=== PATIENT | female | born 1995 | race Caucasian/White ===

== ENCOUNTER 2017-11-02 07:32 | Inpatient (IN) | payer BC ==
[2017-11-02] MEDS ORDERED: Lidocaine 1% 50 ML MDV INJECT PRN (07:59)
[2017-11-02] MEDS ORDERED: Sodium Chloride 0.9% 2.5 ML Syringe FLUSH PRN (07:59)
[2017-11-02] MEDS ORDERED: Nalbuphine 10 MG/1 ML Vial IVPUSH PRN (07:59)
[2017-11-02] MEDS ORDERED: Sodium Chloride 0.9% 10 ML Syringe FLUSH PRN (07:59)
[2017-11-02] MEDS ORDERED: Water For Irrigation,Sterile 1,000 ML Container IRR PRN (07:59)
[2017-11-02] MEDS ORDERED: Carboprost Tromethamine 250 MCG/1 ML Amp IM PRN (07:59)
[2017-11-02] MEDS ORDERED: Misoprostol 200 MCG Tab PO PRN (07:59)
[2017-11-02] MEDS ORDERED: Methylergonovine 0.2 MG/1 ML Amp IM PRN (07:59)
[2017-11-02] MEDS ORDERED: Oxytocin/0.9 % Sodium Chloride 30 UNIT/500 ML BAG IV SCH ×2 (08:00→14:30)
[2017-11-02] MEDS: Butorphanol 1 MG/ML SDV IVPUSH PRN ×2 (08:35→10:39)
[2017-11-02] MEDS: Lactated Ringers 1,000 ML IV SCH ×3 (08:36→12:06)
[2017-11-02] MEDS ORDERED: Ropivacaine 100 ML ONE ×2 (11:09→21:26)
[2017-11-02] MEDS ORDERED: fentaNYL 100 MCG/2 ML SDV ONE ×2 (11:09→21:26)
[2017-11-02] MEDS ORDERED: Ropivacaine 0.2% 2 MG/ML 20 ML SDV ONE (11:10)
--- NOTE | 2017-11-02 11:59 | PCM.PRNOTE ---
- Free Text/Narrative Note: called to place epidural for increasing labor pain. Pt identified and procedure explained. risks reviewed including bleeding, infection, nerve pain, nerve damage, and unsuccessful epidural. pt agrees both verbally and written consent. sitting up, sterile betadine prep times three with sterile drape. 1% lidocaine given SQ at L3. #17 touhy, SAGE saline, SAGE easily found at 5 cm. Dilute heme tinged aspirate with needle placement, no paresthesia. catheter placed easily, taped at 10 cm at skin. flushed with 5 ml normal saline, aspirate clear. test dose 1.5% lidocaine with epinephrine 1:200,000. negative reaction. epidural bolus with Patient HOB at 30 degrees, LIZETTE. bolus of 6 ml 0.2% ropivicaine and 100 mcg fentanyl given in divided doses over 20 minutes. Pt feeling relief with contractions, pain now 0/10. epidural infusion running at 8ml/hr with fentanyl 2 mcg/ml. PCEA bolus available 8 ml/10 min with hourly limit of 30 ml's. Educated on use of PCEA. vital signs remain stable, FHR stable
--- NOTE | 2017-11-02 12:01 | PCM.PREANE ---
Preanesthetic Assessment - Procedure Proposed Procedure: labor epidural - Anesthesia/Transfusion/Family Hx Anesthesia History: No Prior Anesthesia Family History of Anesthesia Reaction: No Transfusion History: No Prior Transfusion(s) - Review of Systems General: No Symptoms Pulmonary: No Symptoms Cardiovascular: No Symptoms Gastrointestinal: No Symptoms, Nausea Neurological: No Symptoms Other: Reports: None - Physical Assessment NPO Status Date: 11/02/17 NPO Status Time: 12:00 (clear liquids) Height: 1.57 m Weight: 71.668 kg ASA Class: 2 Mental Status: Alert & Oriented x3 Dentition: Reports: Normal Dentition Thyro-Mental Finger Breadths: 3 Mouth Opening Finger Breadths: 3 ROM/Head Extension: Other (nose piercing) Lungs: Clear to Auscultation, Normal Respiratory Effort Cardiovascular: Regular Rate, Regular Rhythm - Lab Values: Laboratory Last Values WBC 13.39 K/uL (4.0-11.0) H 11/02/17 08:22 RBC 4.20 M/uL (4.30-5.90) L 11/02/17 08:22 Hgb 11.3 g/dL (12.0-16.0) L 11/02/17 08:22 Hct 34.2 % (36.0-46.0) L 11/02/17 08:22 MCV 81.4 fL (80.0-98.0) 11/02/17 08:22 MCH 26.9 pg (27.0-32.0) L 11/02/17 08:22 MCHC 33.0 g/dL (31.0-37.0) 11/02/17 08:22 RDW Std Deviation 44.7 fl (28.0-62.0) 11/02/17 08:22 RDW Coeff of Jodie 15 % (11.0-15.0) 11/02/17 08:22 Plt Count 196 K/uL (150-400) 11/02/17 08:22 MPV 10.80 fL (7.40-12.00) 11/02/17 08:22 Nucleated RBC % 0.0 /100WBC 11/02/17 08:22 Nucleated RBCs # 0 K/uL 11/02/17 08:22 Blood Type A NEGATIVE 11/02/17 08:22 Antibody Screen NEGATIVE 11/02/17 08:22 - Allergies Allergies/Adverse Reactions: Allergies Allergy/AdvReac Type Severity Reaction Status Date / Time No Known Allergies Allergy Verified 11/02/17 07:58 - Blood Blood Available: Yes Product(s) Available: PRBC - Acknowledgements Anesthesia Type Planned: Epidural Pt an Appropriate Candidate for the Planned Anesthesia: Yes Alternatives and Risks of Anesthesia Discussed w Pt/Guardian: Yes Pt/Guardian Understands and Agrees with Anesthesia Plan: Yes PreAnesthesia Questionnaire - Past Health History Medical/Surgical History: Denies Medical/Surgical History - CURRENT (IN HOUSE) MEDS Current Meds: Current Medications Butorphanol Tartrate (Stadol) 1 mg IVPUSH Q1H PRN PRN Reason: Pain Last Admin: 11/02/17 10:39 Dose: 1 mg Carboprost Tromethamine (Hemabate Ds) 250 mcg IM ASDIRECTED PRN PRN Reason: Post Hemorrhage Lactated Ringer's (Ringers, Lactated) 1,000 mls @ 150 mls/hr IV ASDIRECTED JORGE Last Admin: 11/02/17 11:15 Dose: 150 mls/hr Oxytocin/Sodium Chloride (Oxytocin 30 Unit/500 Ml-Ns) 30 unit in 500 mls @ 999 mls/hr IV TITRATE JORGE Lidocaine HCl (Xylocaine 1%) 50 ml INJECT .ONCE PRN PRN Reason: Laceration repair Methylergonovine Maleate (Methergine) 0.2 mg IM ASDIRECTED PRN PRN Reason: Post Hemorrhage Misoprostol (Cytotec) 200 mcg PO .ONCE PRN PRN Reason: Post Hemorrhage Nalbuphine HCl (Nubain) 10 mg IVPUSH Q1H PRN PRN Reason: Pain (severe 7-10) Sodium Chloride (Saline Flush) 10 ml FLUSH ASDIRECTED PRN PRN Reason: Keep Vein Open Sodium Chloride (Saline Flush) 2.5 ml FLUSH ASDIRECTED PRN PRN Reason: Keep Vein Open Sterile Water (Sterile Water For Irrigation) 1,000 ml IRR ASDIRECTED PRN PRN Reason: delivery Discontinued Medications Fentanyl (Sublimaze) Confirm Administered Dose 300 mcg .ROUTE .STK-MED ONE Stop: 11/02/17 11:10 Ropivacaine (Naropin 0.2%) Confirm Administered Dose 100 mls @ as directed .ROUTE .STK-MED ONE Stop: 11/02/17 11:10 Ropivacaine (Naropin 0.2%) Confirm Administered Dose 20 ml .ROUTE .[facility] ONE Stop: 11/02/17 11:11
[2017-11-02] MEDS ORDERED: Terbutaline 1 MG/ML SDV SUBCUT PRN (14:20)
[2017-11-02] MEDS ORDERED: Misoprostol 25 MCG (1/4 of 100 MCG) Tab VAG PRN (14:20)
[2017-11-02] MEDS ORDERED: Misoprostol 25 MCG (1/4 of 100 MCG) Tab VAG SCH (14:30)
[2017-11-02] MEDS ORDERED: Acetaminophen 500 MG Tab PO ONE (21:04)
[2017-11-02] MEDS: Ampicillin 2 GM in Sodium Chloride 0.9% 100 ML IV SCH (21:40)
[2017-11-02] MEDS ORDERED: Ampicillin 2 GM in Sodium Chloride 0.9% 50 ML IV SCH (21:45)
[2017-11-03] MEDS ORDERED: Acetaminophen 500 MG Tab PO PRN ×2 (00:52)
[2017-11-03] MEDS ORDERED: Benzocaine/Menthol 20%-0.5% Spray 78 GM Cannister TOP PRN (00:52)
[2017-11-03] MEDS ORDERED: Lanolin 100% Cream 7 GM Tube TOP PRN (00:52)
[2017-11-03] MEDS ORDERED: Ibuprofen 400 MG Tab PO PRN (00:52)
[2017-11-03] MEDS ORDERED: oxyCODONE 5 MG Tab PO PRN (00:52)
[2017-11-03] MEDS ORDERED: Bisacodyl 10 MG Supp RECTAL PRN (00:52)
[2017-11-03] MEDS ORDERED: Docusate Sodium 100 MG Cap PO PRN (00:52)
[2017-11-03] MEDS: Ampicillin 2 GM in Sodium Chloride 0.9% 100 ML IV SCH ×4 (03:40→21:27)
[2017-11-03] MEDS: Witch Hazel Medicated Pads 40/Jar TOP PRN (04:25)
[2017-11-03] MEDS: Ibuprofen 800 MG Tab PO PRN ×2 (04:53→15:46)
--- NOTE | 2017-11-03 10:33 | OR ---
SURGEON: Catherine Haney MD DATE OF PROCEDURE: 11/03/2017 PREOPERATIVE DIAGNOSES: 1. Intrauterine at 40 weeks and 3 days gestation. 2. Spontaneous labor. 3. Chorioamnionitis. POSTOPERATIVE DIAGNOSES: 1. Intrauterine at 40 weeks and 3 days gestation. 2. Spontaneous labor. 3. Chorioamnionitis. 4. Delivered. PROCEDURE: 1. Spontaneous vaginal delivery. 2. Repair of perineal laceration. ANESTHESIA: Epidural. ESTIMATED BLOOD LOSS: 200 mL. COMPLICATIONS: None. DISPOSITION: Mother and baby stable in Labor and Delivery room, [facility]. FINDINGS: Male ,3610 grams, score 4 and 9 at 1 and 5 minutes respectively. Nuchal cord twice. Grossly normal placenta with 3-vessel cord. Second-degree laceration and the right labial laceration. BRIEF HISTORY: Patito is a 22-year-old, primigravida, who presented at 40 weeks and 2 days gestation at about 8:00 a.m. to Labor and Delivery on the November 02, 2017, with a history of regular contractions since 5:00 a.m. and then leakage of clear fluid from around 7:00 a.m. She denied vaginal bleeding and reported active fetus. Her care was uncomplicated. She is GBS negative. On admission , she was confirmed to be grossly ruptured and was about 2 cm dilated, 80% effaced , station -2. She was raj every 2 to 3 minutes. The patient received IV medication Stadol for pain management and subsequently received an epidural. Over the next 6 hours, she made minimal cervical change and Pitocin augmentation was commenced. With Pitocin, she was noted to have a category 2 strip alternating with category 1. She had variable decelerations with coupling of contractions and also early decelerations. She slowly made cervical changes and eventually became fully dilated shortly before 9:00 p.m. Prior to just before she was confirmed to be fully dilated, the fetus was noted to have tachycardia in the 160s to 170s. Her temperature was taken and she was found to have a temperature of a 100.5. She received a gram of Tylenol p.o. and also ampicillin with gentamicin was started for suspected chorioamnionitis. The baby's heart rate did come down, but subsequently became tachycardiac between 160 to 170s for about 30 minutes to 45 minutes after she received antibiotics and then it returned back to a baseline of 150s. There were intermittent variable decelerations with pushing and she pushed a little over 2 hours and 20 minutes, brought the baby's head down to a +4 station and was set up for delivery in a modified dorsal lithotomy position. DESCRIPTION OF PROCEDURE: She had a spontaneous vaginal delivery of a live male infant, in TONEY position, nuchal cord x 2 loose was noted. These were easily reduced. Anterior and the posterior shoulders and the rest of the baby were delivered without difficulty. The baby was floppy at delivery with good tone. The cord was quickly double clamped and cut. The baby was transferred over to the resuscitator where stimulation and evaluation of the baby was commenced by the nursery staff. With delivery of the , oxytocin which had been stopped earlier due to the variable decelerations was restarted, titration for active management of third stage of labor. Cord blood and gas samples were obtained. Placenta was delivered by controlled cord traction, appeared to be complete and intact. Examination of a rather swollen perineum revealed a left- sided second-degree laceration and a right labial laceration. These lacerations were repaired using 2-0 Vicryl in layers and were hemostatic post repair. The patient tolerated the procedure well. Uterine massage was performed. The uterus was found to be well contracted below the umbilicus. Sponge, instrument, and needle counts were correct at the end of the delivery. The baby transitioned well and remained in the Labor And Delivery room with the mother. Dr. Lawson, the surveillance manager on-call, presented shortly after delivery and evaluated the baby. JEMV / QUYNH /[id number] ISAEL
--- NOTE | 2017-11-03 10:42 | PCM48HPAN ---
Post Anesthesia Note - EVALUATION WITHIN 48HRS OF ANESTHETIC Vital Signs in Normal Range: Yes Patient Participated in Evaluation: Yes Respiratory Function Stable: Yes Airway Patent: Yes Cardiovascular Function Stable: Yes Hydration Status Stable: Yes Pain Control Satisfactory: Yes Nausea and Vomiting Control Satisfactory: Yes Mental Status Recovered: Yes
[2017-11-03] MEDS: Clindamycin Phosphate in D5W 600 MG in Premix Bag 1 BAG IV SCH ×2 (18:04)
[2017-11-03] MEDS: Lactated Ringers 1,000 ML IV SCH (21:27)
[2017-11-03] MEDS ORDERED: Clindamycin Phosphate in D5W 50 ML ONE (23:58)
[2017-11-04] MEDS: Clindamycin Phosphate in D5W 600 MG in Premix Bag 1 BAG IV SCH ×8 (00:09→17:43)
[2017-11-04] MEDS: Witch Hazel Medicated Pads 40/Jar TOP PRN (00:18)
[2017-11-04] MEDS: Ampicillin 2 GM in Sodium Chloride 0.9% 100 ML IV SCH ×3 (03:08→15:08)
[2017-11-04] MEDS: Lactated Ringers 1,000 ML IV SCH (03:09)
[2017-11-04] MEDS ORDERED: Clindamycin Phosphate in D5W 50 ML ONE (05:55)
[2017-11-04] MEDS: Ibuprofen 800 MG Tab PO PRN ×2 (07:14→19:04)
--- NOTE | 2017-11-04 12:51 | PCM.PNPP ---
- General Info Date of Service: 11/04/17 Functional Status: Reports: Pain Controlled, Tolerating Diet, Ambulating, Urinating - Review of Systems General: Denies: Fever, Weakness, Malaise, Chills HEENT: Denies: Headaches Pulmonary: Denies: Shortness of Breath, Pleuritic Chest Pain Cardiovascular: Denies: Chest Pain, Palpitations, Dyspnea on Exertion Gastrointestinal: Denies: Abdominal Pain Genitourinary: Denies: Dysuria, Incontinence, Retention Musculoskeletal: Reports: No Symptoms Skin: Reports: No Symptoms Neurological: Reports: No Symptoms Psychiatric: Reports: No Symptoms - General Info Date of Service: 11/04/17 - Patient Data Vital Signs - Most Recent: Last Vital Signs Temp 37.8 C 11/04/17 08:04 Pulse 70 11/04/17 05:10 Resp 16 11/04/17 08:04 BP 111/79 11/04/17 08:04 Pulse Ox 97 11/04/17 08:04 Weight - Most Recent: 158 lb I&O - Last 24 Hours: Intake & Output 11/03/17 11/04/17 11/04/17 22:59 06:59 14:59 Intake Total 2 Balance 2 Lab Results - Last 24 Hours: Laboratory Results - last 24 hr 11/03/17 11/03/17 11/04/17 Range/Units 01:25 17:45 07:07 WBC 14.93 H 10.30 (4.0-11.0) K/uL RBC 3.38 L 3.44 L (4.30-5.90) M/uL Hgb 9.2 L 9.2 L (12.0-16.0) g/dL Hct 27.7 L 28.6 L (36.0-46.0) % MCV 82.0 83.1 (80.0-98.0) fL MCH 27.2 26.7 L (27.0-32.0) pg MCHC 33.2 32.2 (31.0-37.0) g/dL RDW Std Deviation 45.8 47.5 (28.0-62.0) fl RDW Coeff of Jodie 16 H 16 H (11.0-15.0) % Plt Count 164 154 (150-400) K/uL MPV 10.70 10.70 (7.40-12.00) fL Neut % (Auto) 87.3 H 84.9 H (48.0-80.0) % Lymph % (Auto) 5.9 L 9.0 L (16.0-40.0) % Story % (Auto) 6.6 5.3 (0.0-15.0) % Eos % (Auto) 0.1 0.7 (0.0-7.0) % Baso % (Auto) 0.1 0.1 (0.0-1.5) % Neut # (Auto) 13.0 H 8.7 H (1.4-5.7) K/uL Lymph # (Auto) 0.9 0.9 (0.6-2.4) K/uL Story # (Auto) 1.0 H 0.6 (0.0-0.8) K/uL Eos # (Auto) 0.0 0.1 (0.0-0.7) K/uL Baso # (Auto) 0.0 0.0 (0.0-0.1) K/uL Nucleated RBC % 0.0 0.0 /100WBC Nucleated RBCs # 0 0 K/uL Screen NEGATIVE (NEGATIVE) RhIG Candidate? YES Rhogam Indicated YES, BABY RH POS H Med Orders - Current: Current Medications Acetaminophen (Tylenol Extra Strength) 500 mg PO Q4H PRN PRN Reason: Pain Acetaminophen (Tylenol Extra Strength) 1,000 mg PO Q4H PRN PRN Reason: Pain Benzocaine/Menthol (Dermoplast Pain Relief 20%-0.5% [place]) 78 gm TOP ASDIRECTED PRN PRN Reason: Perineal Comfort Measure Last Admin: 11/03/17 04:25 Dose: 1 spray Bisacodyl (Dulcolax) 10 mg RECTAL .ONCE PRN PRN Reason: Constipation Docusate Sodium (Colace) 100 mg PO BID PRN PRN Reason: Constipation Last Admin: 11/03/17 15:41 Dose: 100 mg Emollient Ointment (Lansinoh Hpa) 0 gm TOP ASDIRECTED PRN PRN Reason: Sore Nipples Last Admin: 11/03/17 04:25 Dose: 1 applic Gentamicin Sulfate 120 mg/ (Sodium Chloride) 53 mls @ 100 mls/hr IV Q8H [facility] Last Admin: 11/04/17 05:23 Dose: 100 mls/hr Ampicillin Sodium 2 gm/ Sodium (Chloride) 100 mls @ 200 mls/hr IV Q6H [facility] Last Admin: 11/04/17 09:10 Dose: 200 mls/hr Clindamycin Phosphate 600 mg/ (Premix) 50 mls @ 100 mls/hr IV Q6H [facility] Last Admin: 11/04/17 12:07 Dose: 100 mls/hr Ibuprofen (Motrin) 400 mg PO Q4H PRN PRN Reason: Pain Ibuprofen (Motrin) 800 mg PO Q6H PRN PRN Reason: Pain Last Admin: 11/04/17 07:14 Dose: 800 mg Oxycodone HCl (Oxycodone) 5 mg PO Q2H PRN PRN Reason: Pain Last Admin: 11/03/17 04:52 Dose: 5 mg Witch Kala (Tucks) 1 pad TOP ASDIRECTED PRN PRN Reason: comfort care Last Admin: 11/04/17 00:18 Dose: 1 pad Discontinued Medications Acetaminophen (Tylenol Extra Strength) 1,000 mg PO ONETIME ONE Stop: 11/02/17 21:05 Last Admin: 11/02/17 21:16 Dose: 1,000 mg Butorphanol Tartrate (Stadol) 1 mg IVPUSH Q1H PRN PRN Reason: Pain Stop: 11/03/17 00:50 Last Admin: 11/02/17 10:39 Dose: 1 mg Carboprost Tromethamine (Hemabate Ds) 250 mcg IM ASDIRECTED PRN PRN Reason: Post Hemorrhage Fentanyl (Sublimaze) Confirm Administered Dose 300 mcg .ROUTE .STK-MED ONE Stop: 11/02/17 11:10 Fentanyl (Sublimaze) Confirm Administered Dose 200 mcg .ROUTE .STK-MED ONE Stop: 11/02/17 21:27 Lactated Ringer's (Ringers, Lactated) 1,000 mls @ 150 mls/hr IV ASDIRECTED [facility] Last Admin: 11/04/17 03:09 Dose: 150 mls/hr Oxytocin/Sodium Chloride (Oxytocin 30 Unit/500 Ml-Ns) 30 unit in 500 mls @ 999 mls/hr IV TITRATE [facility] Ropivacaine (Naropin 0.2%) Confirm Administered Dose 100 mls @ as directed .ROUTE .STK-MED ONE Stop: 11/02/17 11:10 Oxytocin/Sodium Chloride (Oxytocin 30 Unit/500 Ml-Ns) 30 unit in 500 mls @ 2 mls/hr IV TITRATE JORGE; 2 MUNITS/MIN PRN Reason: Protocol Last Titration: 11/03/17 00:10 Dose: 999 munits/min, 999 mls/hr Ropivacaine (Naropin 0.2%) Confirm Administered Dose 100 mls @ as directed .ROUTE .ST-MED ONE Stop: 11/02/17 21:27 Clindamycin Phosphate (Cleocin In D5w) Confirm Administered Dose 50 mls @ as directed .ROUTE .STK-MED ONE Stop: 11/03/17 23:59 Clindamycin Phosphate (Cleocin In D5w) Confirm Administered Dose 50 mls @ as directed .ROUTE .[facility] ONE Stop: 11/04/17 05:56 Lidocaine HCl (Xylocaine 1%) 50 ml INJECT .ONCE PRN PRN Reason: Laceration repair Methylergonovine Maleate (Methergine) 0.2 mg IM ASDIRECTED PRN PRN Reason: Post Hemorrhage Misoprostol (Cytotec) 200 mcg PO .ONCE PRN PRN Reason: Post Hemorrhage Misoprostol (Cytotec) 25 mcg VAG .ONCE JORGE Misoprostol (Cytotec) 25 mcg VAG Q4H PRN PRN Reason: Cervical Ripening Nalbuphine HCl (Nubain) 10 mg IVPUSH Q1H PRN PRN Reason: Pain (severe 7-10) Ropivacaine (Naropin 0.2%) Confirm Administered Dose 20 ml .ROUTE .ST-MED ONE Stop: 11/02/17 11:11 Sodium Chloride (Saline Flush) 10 ml FLUSH ASDIRECTED PRN PRN Reason: Keep Vein Open Sodium Chloride (Saline Flush) 2.5 ml FLUSH ASDIRECTED PRN PRN Reason: Keep Vein Open Sterile Water (Sterile Water For Irrigation) 1,000 ml IRR ASDIRECTED PRN PRN Reason: delivery Last Admin: 11/03/17 00:22 Dose: 1,000 ml Terbutaline Sulfate (Brethine) 0.25 mg SUBCUT ASDIRECTED PRN PRN Reason: Tacysystole - Infant Interaction Infant Disposition, : to Nursery Infant Feeding: Continues to Breastfeed Support Person: - Recovery Exam Fundal Tone: Firm Fundal Level: At Umbilicus Fundal Placement: Right Lochia Amount: Small Lochia Color: Rubra/Red Perineum Description: Edematous Episiotomy/Laceration: Approximated Bladder Status: Voiding Urinary Elimination: Voided - Exam General: Alert, Oriented Lungs: Clear to Auscultation, Normal Respiratory Effort Cardiovascular: Regular Rate, Regular Rhythm GI/Abdominal Exam: Normal Bowel Sounds Extremities: Non-Tender, Pedal Edema Skin: Warm Psy/Mental Status: Alert, Normal Affect, Normal Mood - Problem List & Annotations (1) Vaginal delivery SNOMED Code(s): 518593744 Code(s): O80 - ENCOUNTER FOR FULL-TERM UNCOMPLICATED DELIVERY Status: Acute Current Visit: Yes - Problem List Review Problem List Initiated/Reviewed/Updated: Yes - My Orders Last 24 Hours: My Active Orders 11/03/17 17:49 Notify Provider Vital Signs [RC] ASDIRECTED 11/03/17 18:00 Clindamycin Phosphate in D5W [Cleocin in D5W] 600 mg Premix Bag 1 bag IV Q6H - Assessment Assessment:: PPD#1 s/p , stable and afebrile Patient has been IV abx for prophylaxis of endometritis over the last 24 hours buit she spike a temp of 110.5 last evening, clindamycin was added to the regimen at the time. She has since remained afebrile. - Plan Plan:: Will discharge home this evening as long as she remains afebrile 24 hours after her last fever Bleeding and infection precautions reviewed Nothing in the vagina for 6 weeks Continue PNV May use OTC pain meds PRN blues and depression S/S were reviewed Follow up in the clinic in 6 weeks
== END 2017-11-04 19:25 | disposition home or self-care (01) | DRG 560 ==
LOC: MW.OBCHECK 07:32 → MW.OB 07:33 → MW.OBCHECK 08:06 → MW.OB 08:06 → OBSVTOIN 11-03 00:10 → MW.OB 11-03 14:23
PROVIDERS: ADMIT Obstetrics & Gynecology; ATTEND Obstetrics & Gynecology
PROC: 10E0XZZ Delivery of Products of Conception, External Approach (ICD-10-PCS; principal; 2017-11-03)
PROC: 0KQM0ZZ Repair Perineum Muscle, Open Approach (ICD-10-PCS; 2017-11-03)
DX: O42.02 Full-term premature rupture of membranes, onset of labor within 24 hours of rupture (principal); O70.1 Second degree perineal laceration during delivery; O41.1230 Chorioamnionitis, third trimester, not applicable or unspecified; Z3A.40 40 weeks gestation of pregnancy; Z37.0 Single live birth
CPT/HCPCS: 01967; 36415; 59025; 59409; 85025; 85027; 85460; 86850; 86900; 86901; 88307; A9270-GY; J0290; J0595; J1580; J2590; J2790; J2795; J3010; J7030; J7050; J7120

== ENCOUNTER 2019-04-17 07:12 | Emergency (ER) | payer BC, OTHER ==
[2019-04-17] MEDS ORDERED: Ondansetron 4 MG Tab.DIS PO ONE (07:58)
--- NOTE | 2019-04-17 08:13 | EDM.PDOC ---
ED HPI GENERAL MEDICAL PROBLEM - General Chief Complaint: Drug or Alcohol Abuse Stated Complaint: POSSIBLE OVERDOSE Time Seen by Provider: 04/17/19 07:28 Source of Information: Reports: Patient History Limitations: Reports: No Limitations - History of Present Illness INITIAL COMMENTS - FREE TEXT/NARRATIVE: History of present illness: []Patient states she was having a hard week and a friend offered her some CBD oils which she took last night and woke up dizzy, with a headache and nauseous. She's not had any vomiting denies any pain. Patient denies being state she has the Mirena IUD. Review of systems: As per history of present illness and below otherwise all systems reviewed and negative. Past medical history: As per history of present illness and as reviewed below otherwise noncontributory. Surgical history: As per history of present illness and as reviewed below otherwise noncontributory. Social history: No reported history of drug or alcohol abuse. Family history: As per history of present illness and as reviewed below otherwise noncontributory. Physical exam: General: Well developed, well nourished in NAD HEENT: Atraumatic, normocephalic, pupils reactive, negative for conjunctival pallor or scleral icterus, mucous membranes moist, throat clear, neck supple, nontender, trachea midline. Lungs: Clear to auscultation, breath sounds equal bilaterally, chest nontender. Heart: S1S2, regular, negative for clicks, rubs, or JVD. Abdomen: NABS, Soft, nondistended, nontender. Negative for masses or hepatosplenomegaly. Negative for costovertebral tenderness. Pelvis: Stable nontender. Genitourinary: Deferred. Rectal: Deferred. Extremities: Atraumatic, negative for cords or calf pain. Neurovascular unremarkable. Neuro: Awake, alert, oriented. Cranial nerves II through XII unremarkable. Cerebellum unremarkable. Motor and sensory unremarkable throughout. Exam nonfocal. Skin:warm and dry Diagnostics: None Therapeutics: Zofran, iv hydration ED Course: Stable Impression: CBD abuse Prescriptions: Zofran Plan: Take meds as directed, follow up with your primary care physician, return to ER if symptoms worsen or change. Definitive disposition and diagnosis as appropriate pending reevaluation and review of above. - Related Data Allergies Allergy/AdvReac Type Severity Reaction Status Date / Time No Known Allergies Allergy Verified 04/17/19 07:47 Home Meds: Home Meds Ondansetron [Zofran ODT] 4 mg PO Q6H PRN #10 tab.dis 04/17/19 [Rx] Sertraline HCl [Zoloft] 1 tab PO DAILY 04/17/19 [History] Past Medical History - Past Health History Medical/Surgical History: Denies Medical/Surgical History HEENT History: Reports: None Cardiovascular History: Reports: None Respiratory History: Reports: None Gastrointestinal History: Reports: None Genitourinary History: Reports: None [employer] History: Reports: None Musculoskeletal History: Reports: None Neurological History: Reports: None Psychiatric History: Reports: Depression Endocrine/Metabolic History: Reports: None Hematologic History: Reports: None Immunologic History: Reports: None Oncologic (Cancer) History: Reports: None Dermatologic History: Reports: None - Past Surgical History Head Surgeries/Procedures: Reports: None HEENT Surgical History: Reports: None Cardiovascular Surgical History: Reports: None Respiratory Surgical History: Reports: None GI Surgical History: Reports: None Female Surgical History: Reports: None Endocrine Surgical History: Reports: None Neurological Surgical History: Reports: None Musculoskeletal Surgical History: Reports: None Oncologic Surgical History: Reports: None Dermatological Surgical History: Reports: None Social & Family History - Family History Family Medical History: Noncontributory - Tobacco Use Smoking Status *Q: Never Smoker Second Hand Smoke Exposure: No - Caffeine Use Caffeine Use: Reports: Energy Drinks - Recreational Drug Use Recreational Drug Use: No ED ROS GENERAL - Review of Systems Review Of Systems: ROS reveals no pertinent complaints other than HPI. ED EXAM, GENERAL - Physical Exam Exam: See Below (History of present illness) Course - Vital Signs Last Recorded V/S: Last Vital Signs Temp 97.4 F 04/17/19 07:48 Pulse 80 04/17/19 07:48 Resp 16 04/17/19 07:48 BP 91/33 L 04/17/19 07:48 Pulse Ox 98 04/17/19 07:48 - Orders/Labs/Meds Orders: Active Orders 24 hr Category Date Time Status Sodium Chloride 0.9% [Saline Flush] Med 04/17/19 08:36 Active 10 ml FLUSH ASDIRECTED PRN Sodium Chloride 0.9% [Saline Flush] Med 04/17/19 08:36 Active 2.5 ml FLUSH ASDIRECTED PRN Saline Lock Insert [OM.PC] Stat Oth 04/17/19 08:35 Ordered Medication Orders Sodium Chloride (Saline Flush) 10 ml FLUSH ASDIRECTED PRN PRN Reason: Keep Vein Open Last Admin: 04/17/19 08:41 Dose: 10 ml Sodium Chloride (Saline Flush) 2.5 ml FLUSH ASDIRECTED PRN PRN Reason: Keep Vein Open Last Admin: 04/17/19 08:41 Dose: 2.5 ml Meds: Medications Generic Name Dose Route Start Last Admin Trade Name Freq PRN Reason Stop Dose Admin Sodium Chloride 10 ml 04/17/19 08:36 04/17/19 08:41 Saline Flush FLUSH 10 ml ASDIRECTED PRN Administration Keep Vein Open Sodium Chloride 2.5 ml 04/17/19 08:36 04/17/19 08:41 Saline Flush FLUSH 2.5 ml ASDIRECTED PRN Administration Keep Vein Open Discontinued Medications Generic Name Dose Route Start Last Admin Trade Name Freq PRN Reason Stop Dose Admin Sodium Chloride 1,000 mls @ 999 mls/hr 04/17/19 08:36 04/17/19 08:41 Normal Saline IV 04/17/19 09:36 999 mls/hr .Bolus ONE Administration Sodium Chloride 1,000 mls @ 999 mls/hr 04/17/19 09:57 04/17/19 10:01 Normal Saline IV 04/17/19 10:57 Not Given .Bolus ONE Ondansetron HCl 4 mg 04/17/19 07:58 04/17/19 08:15 Zofran Odt PO 04/17/19 07:59 4 mg ONETIME ONE Administration Departure - Departure Time of Disposition: 10:02 Disposition: Home, Self-Care 01 Condition: Good Clinical Impression: Drug abuse - Discharge Information *PRESCRIPTION DRUG MONITORING PROGRAM REVIEWED*: No *COPY OF PRESCRIPTION DRUG MONITORING REPORT IN PATIENT MARIA DOLORES: No Prescriptions: Ondansetron [Zofran ODT] 4 mg PO Q6H PRN #10 tab.dis PRN Reason: Nausea Instructions: Substance Use Disorder Referrals: PCP,None [Primary Care Provider] - Forms: ED Department Discharge Additional Instructions: The following information is given to patients seen in the emergency department who are being discharged to home. This information is to outline your options for follow-up care. We provide all patients seen in our emergency department with a follow-up referral. The need for follow-up, as well as the timing and circumstances, are variable depending upon the specifics of your emergency department visit. If you don't have a primary care physician on staff, we will provide you with a referral. We always advise you to contact your personal physician following an emergency department visit to inform them of the circumstance of the visit and for follow-up with them and/or the need for any referrals to a consulting specialist. The emergency department will also refer you to a specialist when appropriate. This referral assures that you have the opportunity for follow-up care with a specialist. All of these measure are taken in an effort to provide you with optimal care, which includes your follow-up. Under all circumstances we always encourage you to contact your private physician who remains a resource for coordinating your care. When calling for follow-up care, please make the office aware that this follow-up is from your recent emergency room visit. If for any reason you are refused follow-up, please contact the [facility] Emergency Department at and asked to speak to the emergency department charge nurse. Take meds as directed, follow up with your primary care physician, return to ER if symptoms worsen or change. [facility] [address] [place] [id number] - My Orders Last 24 Hours: My Active Orders 04/17/19 08:35 Saline Lock Insert [OM.PC] Stat 04/17/19 08:36 Sodium Chloride 0.9% [Saline Flush] 10 ml FLUSH ASDIRECTED PRN Sodium Chloride 0.9% [Saline Flush] 2.5 ml FLUSH ASDIRECTED PRN - Assessment/Plan Last 24 Hours: My Active Orders 04/17/19 08:35 Saline Lock Insert [OM.PC] Stat 04/17/19 08:36 Sodium Chloride 0.9% [Saline Flush] 10 ml FLUSH ASDIRECTED PRN Sodium Chloride 0.9% [Saline Flush] 2.5 ml FLUSH ASDIRECTED PRN
[2019-04-17] MEDS ORDERED: Sodium Chloride 0.9% 2.5 ML Syringe FLUSH PRN (08:36)
[2019-04-17] MEDS ORDERED: Sodium Chloride 0.9% 10 ML Syringe FLUSH PRN (08:36)
[2019-04-17] MEDS ORDERED: Sodium Chloride 0.9% 1,000 ML IV ONE ×2 (08:36→09:57)
== END 2019-04-17 10:04 | disposition home or self-care (01) ==
LOC: MW.ED 07:12
DX: F12.10 Cannabis abuse, uncomplicated (principal); Z79.899 Other long term (current) drug therapy
CPT/HCPCS: 96360; 99283; A9270; J7040